=== PATIENT | male | born 1940 | race Caucasian/White ===

== ENCOUNTER 2018-06-09 05:03 | Emergency (ER) | payer OTHER ==
--- OUTSIDE RECORDS SUMMARY | 2018-06-09 05:06 | XMS REPORT | Clinical Summary ---
:1940 Author Organization [facility] Address [address] [place] [address] Care Team Providers Name Role Phone Jose Guzman MD Primary Care Provider Allergies No Known Allergies Medications Medication Sig Dispensed Refills Start Date End Date Status aspirin 81 MG EC Take 81 mg by 0 Active tablet mouth daily. simvastatin Take 20 mg by 0 Active (ZOCOR) 20 MG mouth nightly. tablet amLODIPine Take 2.5 mg by 0 Active (NORVASC) 2.5 MG mouth daily. tablet buPROPion Take 150 mg by 0 Active (WELLBUTRIN SR) mouth 2 (two) 150 MG 12 hr times daily. tablet tamsulosin Take 0.4 mg by 0 Active (FLOMAX) 0.4 mg mouth daily. Cp24 24 hr capsule clopidogrel Take 75 mg by 0 Active (PLAVIX) 75 mg mouth daily. tablet nebivolol Take 5 mg by 0 Active (BYSTOLIC) 5 MG mouth daily. tablet fluticasone 1 spray by 0 Active (FLONASE) 50 Nasal route mcg/actuation daily. nasal spray naproxen Take 220 mg by 0 Active (ALEVE,ANAPROX,MID mouth 2 (two) OL) 220 MG tablet times daily with breakfast and dinner. silodosin (RAPAFLO Take by mouth. 0 Active ORAL) silodosin 8 mg Cap Take by mouth. 0 05/08/2018 Discontinued Active Problems Not on file Encounters Date Type Specialty Care Team Description 05/09/2018 Surgery Anthony Mensah EXTRACTION,CATARACT MD José W/ IOL COMPLEX 05/09/2018 Anesthesia Event Doris Mistry MD 05/09/2018 Hospital Encounter Anthony Mensah MD 05/08/2018 Hospital Encounter Pre-Admission Testing after 06/08/2017 Social History Tobacco Use Types Packs/Day Years Used Date Former Smoker Quit: 04/23/1996 Smokeless Tobacco: Never Used Alcohol Use Drinks/Week oz/Week Comments No Sex Assigned at Date Recorded Not on file Job Start Date Occupation Industry Not on file Not on file Not on file Travel History Travel Start Travel End No recent travel history available. Last Filed Vital Signs Vital Sign Reading Time Taken Blood Pressure 127/48 05/09/2018 9:00 AM POLICY ADVISOR Pulse 64 05/09/2018 9:00 AM POLICY ADVISOR Temperature 36.6 C (97.8 F) 05/09/2018 8:48 AM POLICY ADVISOR Respiratory Rate 13 05/09/2018 9:00 AM POLICY ADVISOR Oxygen Saturation 97% 05/09/2018 9:00 AM POLICY ADVISOR Inhaled Oxygen Concentration - - Weight 88.5 kg (195 lb) 05/09/2018 7:45 AM POLICY ADVISOR Height 180.3 cm (5' 11") 05/09/2018 7:45 AM POLICY ADVISOR Body Mass Index 27.2 05/09/2018 7:45 AM POLICY ADVISOR Plan of Treatment Not on file Implants Implanted Type Area Supply Chain Engineer Device Shelf Model / Identifier Expiration Serial / Lot Date Iol Tecnis [id number] 21.5 Jammie [id number] - [id number] Ophthalmology Right: [employer] 02/07/2021 [id number] / Implanted: Qty: 1 on 05/09/2018 by Anthony Mensah MD Eye [id number] / N/A Procedures Procedure Name Priority Date/Time Associated Diagnosis Comments EXTRACTION,CATARACT W/ 05/09/2018 8:30 AM Age-related nuclear IOL COMPLEX POLICY ADVISOR cataract, bilateral after 06/08/2017 Results Not on fileafter 06/08/2017 Insurance Payer Benefit Plan / Group Subscriber ID Type Phone Address MEDICARE MEDICARE A B xxxxxxxxxxx Medicare OTHER-COMMERCIAL GENERIC COMMERCIAL xxxxxxx
--- OUTSIDE RECORDS SUMMARY | 2018-06-09 05:06 | XMS REPORT | Continuity of Care Document ---
:1940 Author Organization Interface Problems Problem Status Onset Date Classification Date Comments Source Reported Medications Medication Details Route Status Patient Ordering Order Source Instructions Provider Date Allergies, Adverse Reactions, Alerts Substance Category Reaction Severity Reaction Status Date Comments Source type Reported Immunizations Immunization Date Given Site Status Last Updated Comments Source Results Order Results Value Reference Date Interpretation Comments Source Name Range Vital Signs Vital Sign Value Date Comments Source Encounters Location Location Encounter Encounter Reason Attending ADM DC Status Source Details Type Number For Provider Date Date Visit Outpatient [id number] CHIDI 12/[address] [facility] [place] Procedures Procedure Code Date Perfomer Comments Source
[2018-06-09] MEDS ORDERED: OXYMETAZOLINE HCL 0.05% 15ML NAS ONE (05:26)
[2018-06-09 06:06] LABS: Absolute Lymphocytes (CBC) 1.3 K/uL (0.7-4.9); Absolute Monocytes 0.3 K/uL (0.1-1.3); Basophils % 0.8 % (0-1.3); Eosinophils % 3.2 % (0-4.4); Lymphocytes % 34.1 % (15.3-44.8); MPV 7.5 fL (7.6-11.3); Monocytes % 8.7 % (3.3-12.3); RBC Red Blood Cell Count 4.54 M/uL (4.33-5.43)
[2018-06-09 06:07] LABS: Protime INR 0.96
[2018-06-09 06:09] LABS: Potassium 4.2 mmol/L (3.5-5.1)
[2018-06-09] MEDS ORDERED: TRANEXAMIC ACID 1,000 MG in NA CHLORIDE 0.9% 50 ML IV ONE (08:00)
--- NOTE | 2018-06-09 08:48 | EDPHYS ---
Physician Documentation [facility] Name: Morteza Linares Age: 77 yrs Sex: Male : 1940 Arrival Date: 06/09/2018 Time: 05:06 Bed 6 Private MD: Tootie Guzman C ED Physician Jose Burnett HPI: 06/09 08:38 This 77 yrs old Male presents to ER via Ambulatory with complaints of Nose gs Bleed. 08:38 Onset: The symptoms/episode began/occurred at 04:30. Modifying factors: The symptoms gs are alleviated by nothing. the symptoms are aggravated by nothing. Associated signs and symptoms: Loss of consciousness: the patient experienced no loss of consciousness, Pertinent positives: bleeding, Pertinent negatives: lightheadedness, shortness of breath. Severity of symptoms: At their worst the symptoms were severe in the emergency department the symptoms are unchanged. The patient has not experienced similar symptoms in the past. The patient has been recently seen by a physician: an oral maxillofacial specialist, with different complaint(s). Historical: - Allergies: 05:16 No Known Allergies; aa1 - Home Meds: 05:16 amlodipine oral [Active]; aspirin 81 mg Oral chew 1 tab once daily [Active]; aa1 Simvastatin Oral [Active]; - PMHx: 05:16 Hypertension; High Cholesterol; prostate cancer; aa1 - PSHx: 05:16 CABG; Knee surgery; cardiac ablation; aa1 - Immunization history:: Pneumococcal vaccine is up to date, Flu vaccine is up to date. - Social history:: Smoking status: Patient/guardian denies using tobacco. - Ebola Screening: : No symptoms or risks identified at this time. ROS: 08:38 All other systems are negative. gs Exam: 08:38 Head/Face: Normocephalic, atraumatic. Eyes: Pupils equal round and reactive to light, gs extra-ocular motions intact. Lids and lashes normal. Conjunctiva and sclera are non-icteric and not injected. Cornea within normal limits. Periorbital areas with no swelling, redness, or edema. Cardiovascular: Regular rate and rhythm with a normal S1 and S2. No gallops, murmurs, or rubs. Normal PMI, no JVD. No pulse deficits. Respiratory: Lungs have equal breath sounds bilaterally, clear to auscultation and percussion. No rales, rhonchi or wheezes noted. No increased work of breathing, no retractions or nasal flaring. Abdomen/GI: Soft, non-tender, with normal bowel sounds. No distension or tympany. No guarding or rebound. No evidence of tenderness throughout. Skin: Warm, dry with normal turgor. Normal color with no rashes, no lesions, and no evidence of cellulitis. MS/ Extremity: Pulses equal, no cyanosis. Neurovascular intact. Full, normal range of motion. Neuro: Awake and alert, GCS 15, oriented to person, place, time, and situation. Cranial nerves II-XII grossly intact. Motor strength 5/5 in all extremities. Sensory grossly intact. Cerebellar exam normal. Normal gait. 08:38 Constitutional: The patient appears alert, awake. 08:38 ENT: Nose: bleeding, is seen from the right nare, and is profuse, Posterior pharynx: blood. Vital Signs: 05:16 BP 166 / 93; Pulse 75; Resp 18; Temp 97.6; Pulse Ox 95% on R/A; Weight 90.72 kg; Height aa1 5 ft. 11 in. (180.34 cm); Pain 0/10; 06:26 BP 162 / 59; Pulse 72; Resp 15; Pulse Ox 94% on R/A; tl2 07:35 BP 178 / 71; Pulse 64; Resp 20; Pulse Ox 96% on R/A; ph 08:32 BP 164 / 80; Pulse 65; Resp 18; Pulse Ox 97% on R/A; hj 05:16 Body Mass Index 27.89 (90.72 kg, 180.34 cm) aa1 Procedures: 08:38 Epistaxis treatment: Copious amount of bleeding noted from right nare. Treated using direct pressure, rhino rocket, txa. Bleeding decreased. MDM: 07:53 Patient medically screened. 08:38 Differential diagnosis: spontaneous epistaxis. Data reviewed: vital signs, nurses gs notes. Response to treatment: the patient's symptoms have mildly improved after treatment. 06/09 05:33 Order name: CBC with Diff kdr 06/09 05:33 Order name: Chem 7; Complete Time: 06:38 kdr 06/09 05:33 Order name: PT-INR; Complete Time: 06:38 kdr 06/09 05:34 Order name: CBC with Automated Diff; Complete Time: 06:38 EDMS Administered Medications: 07:44 Drug: Tranexamic Acid 1000 mg Route: IV; Rate: calculated rate; Site: Other; 09:00 Follow up: IV Status: Completed infusion hj Disposition: 06/09/18 08:[address] [facility]. Diagnosis is Epistaxis. - Reason for transfer: Higher level of care. - Accepting physician is isac. - Condition is Stable. - Problem is new. - Symptoms have improved. Critical care time excluding procedures: 08:38 Critical care time: Bedside Care: 10 minutes, Consultation: 10 minutes, Family gs Intervention: 10 minutes. Total time: 30 minutes Signatures: Dispatcher [employer] EDMS Allyssa Arriaga RN RN lida1 Maged Chambers MD MD [facility] Rosanna Carpenter RN RN [place] RN RN hj Starr, Gregory, MD MD gs Corrections: (The following items were deleted from the chart) 09:01 08:47 06/09/2018 08:[address] [facility]. hj Diagnosis is Epistaxis. Reason for transfer: Higher level of care. Accepting physician is isac. Condition is Stable. Problem is new. Symptoms have improved. gs
--- NOTE | 2018-06-09 08:48 | ER ---
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 Denies use of blood thinners but does report taking ASA 81 mg daily and has been taking Motrin 600 mg regularly for the past week for dental pain. Transition of care: patient was not received from another setting of care. Onset of symptoms was June 09, 2018. Risk Assessment: Do you want to hurt yourself or someone else? Patient reports no desire to harm self or others. Initial Sepsis Screen: Does the patient meet any 2 criteria? No. Patient's initial sepsis screen is negative. Does the patient have a suspected source of infection? No. Patient's initial sepsis screen is negative. Care prior to arrival: None. 05:13 Method Of Arrival: Ambulatory aa1 05:13 Acuity: ANOOP 4 aa1 Triage Assessment: 05:16 General: Appears in no apparent distress. comfortable, Behavior is calm, cooperative, aa1 appropriate for age. Pain: Denies pain. Historical: - Allergies: 05:16 No Known Allergies; aa1 - Home Meds: 05:16 amlodipine oral [Active]; aspirin 81 mg Oral chew 1 tab once daily [Active]; aa1 Simvastatin Oral [Active]; - PMHx: 05:16 Hypertension; High Cholesterol; prostate cancer; aa1 - PSHx: 05:16 CABG; Knee surgery; cardiac ablation; aa1 - Immunization history:: Pneumococcal vaccine is up to date, Flu vaccine is up to date. - Social history:: Smoking status: Patient/guardian denies using tobacco. - Ebola Screening: : No symptoms or risks identified at this time. Screenin:32 Abuse screen: Denies threats or abuse. Nutritional screening: No deficits noted. tl2 Tuberculosis screening: No symptoms or risk factors identified. Fall Risk None identified. Assessment: 05:32 General: Appears in no apparent distress. uncomfortable, Behavior is cooperative, tl2 appropriate for age, anxious. Pain: Denies pain. Neuro: Level of Consciousness is awake, alert, obeys commands, Oriented to person, place, time, situation. Cardiovascular: Denies chest pain. Respiratory: Airway is patent Respiratory effort is even, unlabored, Respiratory pattern is regular, symmetrical. GI: No signs and/or symptoms were reported involving the gastrointestinal system. EENT: Nares with bleeding noted bilaterally. Derm: Skin is pink, warm \T\ dry. 06:10 Reassessment: removed rhino rocket from left nare, no bleeding noted. Will continue to tl2 monitor for bleeding. 06:21 Reassessment: Patient appears in no apparent distress at this time. Patient and/or tl2 family updated on plan of care and expected duration. Pain level reassessed. Patient is alert, oriented x 3, equal unlabored respirations, skin warm/dry/pink. 07:26 General: Appears in no apparent distress. uncomfortable, Behavior is calm, cooperative, hj appropriate for age. Pain: Denies pain. Neuro: Level of Consciousness is awake, alert, obeys commands, Oriented to person, place, time, situation, Appropriate for age. Cardiovascular: Denies chest pain. Respiratory: Airway is patent Respiratory effort is even, unlabored, Respiratory pattern is regular, symmetrical. : No signs and/or symptoms were reported regarding the genitourinary system. EENT: Nares with bleeding noted bilaterally. Derm: Skin is pink, warm \T\ dry. 07:30 Reassessment: provider at bedside;. 07:35 Reassessment: R nare noted to be bleeding w/ moderate amount of blood, ERP at bedside ph applying pressure to bridge of nose, contacted pharmacy for TXA per ERP order. 07:45 Reassessment: Patient appears in no apparent distress at this time. Patient and/or ph family updated on plan of care and expected duration. Pain level reassessed. Patient is alert, oriented x 3, equal unlabored respirations, skin warm/dry/pink. TXA brought from pharmacy and applied topically to R nare by Dr Burnett using sterile gauze. Vital Signs: 05:16 BP 166 / 93; Pulse 75; Resp 18; Temp 97.6; Pulse Ox 95% on R/A; Weight 90.72 kg; Height aa1 5 ft. 11 in. (180.34 cm); Pain 0/10; 06:26 BP 162 / 59; Pulse 72; Resp 15; Pulse Ox 94% on R/A; tl2 07:35 BP 178 / 71; Pulse 64; Resp 20; Pulse Ox 96% on R/A; ph 08:32 BP 164 / 80; Pulse 65; Resp 18; Pulse Ox 97% on R/A; hj 05:16 Body Mass Index 27.89 (90.72 kg, 180.34 cm) aa1 Vitals: 06:26 Cardiac Rhythm Assessment Irregular Other ventricular bigeminy. tl2 ED Course: 05:06 Patient arrived in ED. ds1 05:06 Tootie Guzman MD is Private Physician. ds1 05:10 Maged Chambers MD is Attending Physician. kdr 05:15 Triage completed. aa1 05:16 Arm band placed on left wrist. aa1 05:32 Patient has correct armband on for positive identification. Bed in low position. Call tl2 light in reach. Side rails up X 1. Adult w/ patient. 05:32 Assist provider with nosebleed control using Afrin sprays, rhino rocket placed for tl2 extensive packing needs, Bleeding from both nares. Set up for procedure. Performed by Maged Chambers MD Bleeding decreased. Patient tolerated well. 06:56 [place] RN is Primary Nurse. hj 07:53 Attending Physician role handed off by Maged Chambers MD gs 07:53 Jose Burnett MD is Attending Physician. gs 08:38 Patient transferred, IV remains in place. intact, bleeding controlled, No hj redness/swelling at site. Pressure dressing applied. Administered Medications: 07:44 Drug: Tranexamic Acid 1000 mg Route: IV; Rate: calculated rate; Site: Other; hj 09:00 Follow up: IV Status: Completed infusion hj Outcome: 08:36 Transferred by ground EMS to [facility], Transfer form completed. X-rays sent hj w/ patient. Note: called report to Sacha Escobar RN 08:36 Condition: stable 08:36 Instructed on the need for transfer, Demonstrated understanding of instructions. 08:47 ER care complete, transfer ordered by . gs 09:01 Patient left the ED. hj Signatures: Allyssa Arriaga RN RN aa1 Maged Chambers MD MD kdr Sanford, Demi ds1 Rosanna Carpenter RN RN [place] RN RN hj Francine Jane RN RN tl2 Jose Burnett MD MD gs Corrections: (The following items were deleted from the chart) 08:39 08:36 Transferred by ground EMS to [facility], Transfer form completed. jeffrey X-rays sent w/ patient. hj
== END 2018-06-09 09:01 | disposition short-term general hospital (02) ==
LOC: ER 05:03
PROC: 2Y41X5Z Packing of Nasal Region using Packing Material (ICD-10-PCS; principal; 2018-06-09)
DX: R04.0 Epistaxis (principal); I10 Essential (primary) hypertension; E78.00 Pure hypercholesterolemia, unspecified; Z79.82 Long term (current) use of aspirin; Z85.46 Personal history of malignant neoplasm of prostate; Z95.1 Presence of aortocoronary bypass graft
CPT/HCPCS: 30901; 36415; 80048; 85025; 85610; 96365; 99285